=== PATIENT | male | born 1970 | race American Indian/Alaskan Native ===

== ENCOUNTER 2019-07-17 06:20 | Day surgery (SDC) | payer MEDICAID ==
[2019-07-17] VITALS (7 sets, daily range): BP systolic 133–149; BP diastolic 87–105
[~2019-07-17] VITALS: Ht 185.4 cm; Wt 139.3 kg
[~2019-07-17 06:20] MED LIST: AMLO2.5T5 PO; CLON0.1T PO; MECL-111 PO; METF500T PO; METO-411 PO
[2019-07-17] MEDS ORDERED: BUPIVAcaine/PF 2.5mg/ml (0.25%) 10ml vial ONE (06:35)
[2019-07-17] MEDS ORDERED: CLINDAMYCIN/D5W 900mg/50ml 50 ML IV ONE (06:50)
[2019-07-17] MEDS ORDERED: DOCUMENT DATE & TIME OF BETA-BLOCKER PO ONE (07:30)
[2019-07-17] MEDS ORDERED: famotidine 20mg tablet PO ONE (07:30)
[2019-07-17] MEDS ORDERED: ringers solution, lacted 1,000 ML IV SCH ×2 (07:30→08:10)
[2019-07-17 07:34] LABS: BASOPHILS # (AUTO) 0.1 X10'3 (0-0.2); BASOPHILS % (AUTO) 0.8 % (0-1); EOSINOPHILS # (AUTO) 0.1 X10'3 (0-0.9); EOSINOPHILS % (AUTO) 1.2 % (0-6); HEMATOCRIT 49.5 % (42.0-52.0); HEMOGLOBIN 17.2 g/dl (14.0-17.9); LYMPHOCYTES # (AUTO) 2.1 X10'3 (1.1-4.8); LYMPHOCYTES % (AUTO) 31.2 % (21-51); MEAN CORPUSCULAR HEMOGLOBIN 33.5 PG (27.0-31.0); MEAN CORPUSCULAR HGB CONC 34.8 g/dL (33.0-36.5); MEAN CORPUSCULAR VOLUME 96.3 FL (78-98); MEAN PLATELET VOLUME 8.5 FL (7.4-10.4); MONOCYTES # (AUTO) 0.6 X10'3 (0-0.9); MONOCYTES % (AUTO) 9.8 % (2-12); NEUTROPHILS # (AUTO) 3.8 X10'3 (1.8-7.7); PLATELET COUNT 259 X10'3 (140-440); RED BLOOD COUNT 5.14 X10'6 (4.70-6.10); RED CELL DISTRIBUTION WIDTH 13.5 % (11.5-14.5); WHITE BLOOD COUNT 6.6 X10'3 (4.5-11.0)
[2019-07-17 07:45] LABS: ALANINE AMINOTRANSFERASE 126 U/L (12-78); ALBUMIN 3.9 G/DL (3.4-5.0); ALKALINE PHOSPHATASE 70 IU/L (46-116); ANION GAP 8 (8-16); ASPARTATE AMINO TRANSFERASE 53 U/L (10-37); BILIRUBIN,TOTAL 0.7 MG/DL (0.1-1.0); BLOOD UREA NITROGEN 16 MG/DL (7-18); BUN/CREATININE RATIO 18.4 (5.4-32.0); CALCIUM 8.9 MG/DL (8.5-10.1); CHLORIDE 103 MMOL/L (99-107); CREATININE 0.87 MG/DL (0.60-1.10); GLUCOSE 137 MG/DL (70-104); SODIUM 138 MMOL/L (135-145); TOTAL CARBON DIOXIDE 26.8 MMOL/L (24-32); TOTAL PROTEIN 7.9 G/DL (6.4-8.2); eGFR > 90 ML/MIN
[2019-07-17] MEDS ORDERED: meperidine/PF 25mg/ml syringe IV PRN ×3 (08:10)
[2019-07-17] MEDS ORDERED: ondansetron/PF 4mg/2ml inj IV PRN (08:10)
[2019-07-17] MEDS ORDERED: proCHLORperazine 10 MG/2 ml inj IV PRN (08:10)
[2019-07-17] MEDS ORDERED: morphine 4 MG/ML inj SYRINge IV PRN ×2 (08:10)
[2019-07-17] MEDS ORDERED: LIDOcaine 1% W/epiNEPHrine 1:200,000 10ml vial ONE (08:56)
[2019-07-17] MEDS ORDERED: rocuronium 10mg/ml inj IV ONE (09:26)
[2019-07-17] MEDS ORDERED: sevoflurane 250ml liquid IH ONE (09:26)
[2019-07-17] MEDS ORDERED: glycopyrrolate 0.2mg/ml inj ONE (09:26)
[2019-07-17] MEDS ORDERED: neostigmine methylsulfate 1 MG/ML 10ml vial ONE (09:26)
[2019-07-17] MEDS ORDERED: midazolam 2 mg/2 ml injection ONE (09:31)
[2019-07-17] MEDS ORDERED: fentaNYL /PF 50mcg/ml 5ml ampule ONE (09:31)
[2019-07-17] MEDS ORDERED: propofol inj 20 ML IV ONE (09:33)
--- NOTE | 2019-07-17 10:39 | NUR ---
Received from OR via , accompanied by Anesthesiologist HITESH and report given by Anesthesiolgist. AWAKE IN NO RESP DISTRESS SKIN WARM AND DRY HOB ELEVATED RUE ELEVATED FINGERS WARM PINK GOOD CAP REFILL NO CO PAIN. DSG DI.
--- NOTE | 2019-07-17 11:29 | NUR ---
AWAKE VS WNL PAIN DECREASED AFTER IV MED. DSG DI, FINGERS WARM PINK GOOD CAP REFILL AND RADIAL PULSE, ICE TO RT ELBOW. MOVES FINGERS. SLING TO RT ARM PER PT REQUEST. TOLERATES LIQUIDS. DISCH INSTR GIVEN TO PT AND UNDERSTOOD, PRESCRIPT FOR PAIN GIVEN TO PT. HOME WITH .
== END 2019-07-17 11:29 | disposition home or self-care (01) ==
LOC: PAS 06:20
PROVIDERS: ATTEND Orthopaedic Surgery Hand Surgery
DX: M19.021 Primary osteoarthritis, right elbow (principal); M24.021 Loose body in right elbow; M65.88 Other synovitis and tenosynovitis, other site; J44.9 Chronic obstructive pulmonary disease, unspecified; I10 Essential (primary) hypertension; E11.9 Type 2 diabetes mellitus without complications; E66.01 Morbid (severe) obesity due to excess calories; Z87.891 Personal history of nicotine dependence; Z88.5 Allergy status to narcotic agent; Z88.0 Allergy status to penicillin; Z88.8 Allergy status to other drugs, medicaments and biological substances; Z79.899 Other long term (current) drug therapy; Z79.84 Long term (current) use of oral hypoglycemic drugs
CPT/HCPCS: 29837; 36415; 80053; 85025; J2175; J2250; J2704; J2710; J3010; J3490; J7120; 93005; A4215; A4355; A4618; A6449; A7000